=== PATIENT | male | born 1965 | race Caucasian/White ===

== ENCOUNTER 2016-07-14 23:55 | Emergency (ER) | payer MEDICARE, OTHER ==
--- NOTE | ~2016-07-14 | CT71 ---
[facility] A Service of [facility] RADIOLOGY TEXT RESULTS PATIENT: SUSHILA RYDER LOCATION: SED : 61 UNIT #: [id number] AGE: [address]: Valentin Antonio SEX: M ORDER DR: [id number] [place] [id number] E MR#: [id number] Acc #: [id number] NAME: SUSHILA RYDER : 1965 SEX: M STUDY DATE/TIME: 07/15/2016 1:20 UNIT: SED ROOM: STUDY DESCRIPTION: CT Head Wo Contrast Attending Physician: Valentin Antonio P.A.-C. Ordering Physician: Valentin Antonio P.A.-C. Primary Care Physician: Asim Craig M.D. MEDICAL IMAGING REPORT This report is preliminary unless electronic signature is present. EXAM CT head, noncontrast, 07/15/2016 HISTORY 51-year-old male in the ED complaining of 2-day history of headache accompanying a cough. TECHNIQUE CT examination of the head was performed without IV contrast. This CT exam was performed with one or more of the following radiation dose reduction techniques: Automatic exposure control, adjustment of mA and/or kV according to patient size, and iterative reconstruction. FINDINGS The examination is negative. No evidence of intracranial hemorrhage, mass, mass effect, cerebral edema or hydrocephalus. No significant change since 09/16/2011. Mucosal thickening is visible within the included portions of the frontal and ethmoid sinuses bilaterally. IMPRESSION 1. Negative noncontrast head CT examination. 2. Frontal and ethmoid sinus mucosal thickening. Dictated by... Floyd Keita M.D. THIS IS AN ELECTRONICALLY VERIFIED REPORT Floyd Keita M.D. at 07/15/2016 5:59 AM RGW/psc [facility] A Service [facility] RADIOLOGY TEXT RESULTS PATIENT: SUSHILA RYDER LOCATION: SED : 61 UNIT #: [id number] AGE: [address]: Valentin Antonio SEX: M ORDER DR: TD: 07/15/2016 02:13 JOB #: [id number] MEDICAL IMAGING REPORT Page 1 of 1
[~2016-07-14 23:55] MED LIST: AMOXICILLIN500 M1 PO; ATIVAN PO; BP MED PO; CELEXA PO; CHOLESTEROL; EFFEXOR50 MG PO; LISINOPRIL10 MG PO; LORTAB 10/500 T1 TAB PO; MOTION SICKNESS25 M4 PO; NEXIUM PO; NORVASC PO; PERCOCET 7.5/321 TAB PO; PHENERGAN25 MG PO; PRILOSEC PO; SERTRALINE HCL50 M1 PO; ZETIA PO; ZOCOR PO
[2016-07-15 00:52] LABS: INFLUENZA A NEG (NEG)
[2016-07-15 00:53] LABS: INFLUENZA B NEG (NEG)
[2016-07-15 00:59] LABS: BASOPHIL% 0.3 % (0-2.5); DIFF IND NO; EOSINOPHIL% 0.1 % (0.0-7.0); HEMATOCRIT 43.1 % (38.0-50.0); LYMPHOCYTE# 1.4 X10e3 (1.0-3.5); LYMPHOCYTE% 9.7 % (17.0-45.0); MEAN CELL VOLUME 91.9 FL (83-96); MEAN CORPUSCULAR HEMOGLOBIN 31.9 PG (28-34); MEAN CORPUSCULAR HGB CONC 34.7 g/dL (30-36); MEAN PLATELET VOLUME 8.7 FL (6.5-11.5); MONOCYTE# 1.3 X10e3 (0-1.0); MONOCYTE% 9.3 % (3.0-12.0); NEUTROPHIL# 11.3 X10e3 (1.5-7.1); NEUTROPHIL% 80.6 % (40-75); PLATELET COUNT 196 X10e3 (140-420); RED BLOOD COUNT 4.69 X10e (3.90-5.60); RED CELL DISTRIBUTION WIDTH 13.6 % (11.0-15.5)
[2016-07-15 01:14] LABS: ALBUMIN SERUM 3.7 g/dL (3.5-5.0); BILIRUBIN, DIRECT 0.3 mg/dL (0.0-0.2); BILIRUBIN,INDIRECT 0.8 mg/dL (0.0-0.9); BILIRUBIN,TOTAL 1.1 mg/dL (0.2-2.0); BUN/CREATININE RATIO 13.33; CALCIUM SERUM 8.4 mg/dL (8.4-10.2); CREATININE SERUM 0.9 mg/dL (0.6-1.4); GLOM FILT RATE Estimated 97.2 mL/min (>60); POTASSIUM 3.5 mmol/L (3.5-5.1); PROTEIN TOTAL SERUM 7.6 g/dL (6.0-8.3)
== END 2016-07-15 02:23 | disposition home or self-care (01) ==
LOC: SED 23:55
PROVIDERS: Physician Assistant
DX: J01.20 Acute ethmoidal sinusitis, unspecified (principal); J01.10 Acute frontal sinusitis, unspecified; K21.9 Gastro-esophageal reflux disease without esophagitis; I10 Essential (primary) hypertension; Z79.899 Other long term (current) drug therapy; Z88.8 Allergy status to other drugs, medicaments and biological substances
CPT/HCPCS: 36415; 70450; 80048; 80076; 85025; 87804; 96365; 96375; 99284; J1200; J1885; J2550